=== PATIENT | male | born 1960 | race Caucasian/White ===

== ENCOUNTER 2016-04-30 11:47 | Inpatient (IN) | payer OTHER ==
[2016-04-30 14:11] LABS: COLOR ORANGE
[2016-04-30 14:14] LABS: BACTERIA TRACE /hpf (NONE SEEN); MUCUS TRACE /lpf (NONE-1+); RBC,URINE 15-25 /hpf (0-3)
[2016-04-30 14:15] LABS: HYALINE CASTS 15-25 /lpf (0-1)
[2016-04-30] MEDS ORDERED: NS 1,000 ML IV ONE (14:27)
[2016-04-30] MEDS ORDERED: ONDANSETRON 4 MG/2 ML VIAL IVP ONE (14:27)
[2016-04-30] MEDS ORDERED: HYDROmorphONE/DILAUDID 1 MG/ML SYR IVP ONE (14:27)
--- NOTE | 2016-04-30 14:30 | EDPHY ---
H & P Stated Complaint: lower qaud abd,bladder pain, burning with urination Time Seen by Provider: 04/30/16 14:17 HPI/ROS: CHIEF COMPLAINT: Dysuria, hematuria HISTORY OF PRESENT ILLNESS: The patient is a 55-year-old man who comes to the emergency department complaining dysuria, hematuria and suprapubic pain. His pain began 2 days ago. He thought that he had gas and was passing a lot of gas. This seemed to relieve his symptoms until night when he vomited several times. He had a mild fever on but has not since. He recently finished amoxicillin due to a dental infection and is currently on a Z-Hussein for the same. He denies other significant past medical history. He denies discharge. No promiscuous sexual contact. No testicle pain. No prostate pain or pain with stooling. No history of surgeries or procedures. REVIEW OF SYSTEMS: Constitutional: denies: chills, fever, recent illness, recent injury EENTM: denies: blurred vision, double vision, nose congestion Respiratory: denies: cough, shortness of breath Cardiac: denies: chest pain, irregular heart rate, lightheadedness, palpitations Gastrointestinal/Abdominal: denies: abdominal pain, diarrhea, nausea, vomiting, blood streaked stools Genitourinary: See HPI Musculoskeletal: denies: joint pain, muscle pain Skin: denies: lesions, rash, jaundice, bruising Neurological: denies: headache, numbness, paresthesia, tingling, dizziness, weakness Hematologic/Lymphatic: denies: blood clots, easy bleeding, easy bruising Immunologic/allergic: denies: HIV/AIDS, transplant EXAM: GENERAL: Well-appearing, well-nourished and in no acute distress. HEAD: Atraumatic, normocephalic. EYES: Pupils equal round and reactive to light, extraocular movements intact, sclera anicteric, conjunctiva are normal. ENT: TMs normal, nares patent, oropharynx clear without exudates. Moist mucous membranes. NECK: Normal range of motion, supple without lymphadenopathy or JVD. LUNGS: Breath sounds clear to auscultation bilaterally and equal. No wheezes rales or rhonchi. HEART: Regular rate and rhythm without murmurs, rubs or gallops. ABDOMEN: Focal suprapubic tenderness, no right lower or left lower quadrant tenderness. Soft, nontender, normoactive bowel sounds. No guarding, no rebound. No masses appreciated. No pain with prostate palpation.Normal testicles, no discharge with milking of the urethra. BACK: No CVA tenderness, no spinal tenderness, step-offs or deformities EXTREMITIES: Normal range of motion, no pitting or edema. No clubbing or cyanosis. NEUROLOGICAL: Cranial nerves II through XII grossly intact. Normal speech, normal gait. 5/5 strength, normal movement in all extremities, normal sensation PSYCH: Normal mood, normal affect. SKIN: Warm, dry, normal turgor, no visible rashes or lesions. Source: Patient Exam Limitations: No limitations - Personal History Current Tetanus/Diphtheria Vaccine: Unsure Current Tetanus Diphtheria and Acellular Pertussis (TDAP): Unsure - Medical/Surgical History Hx Asthma: No Hx Chronic Respiratory Disease: No Hx Diabetes: No Hx Cardiac Disease: No Hx Renal Disease: No Hx Cirrhosis: No Hx Alcoholism: No Hx HIV/AIDS: No Hx Splenectomy or Spleen Trauma: No Other PMH: depression, osteoporosis - Family History Significant Family History: No pertinent family hx - Social History Smoking Status: Never smoked Alcohol Use: None Drug Use: None Constitutional: Initial Vital Signs Temperature (C) 37.0 C 04/30/16 12:14 Heart Rate 117 H 04/30/16 12:14 Respiratory Rate 16 04/30/16 12:14 Blood Pressure 126/95 H 04/30/16 12:14 O2 Sat (%) 96 04/30/16 12:14 O2 Delivery Mode Room Air Allergies/Adverse Reactions: No Known Allergies Allergy (Unverified 04/30/16 12:17) Home Medications: Medication Instructions Recorded AZITHROMYCIN [Z-PACK] 250 mg PO DAILY 04/30/16 Alendronate Sodium [Fosamax 70 MG 70 mg PO FR@0700 04/30/16 (*)] Atorvastatin Calcium [Lipitor 40 40 mg PO HS 04/30/16 mg (*)] Cholecalciferol Vit D3 [Vitamin D3 2,000 units PO DAILY 04/30/16 2000 units tab (OTC)] FLUoxetine [Prozac 20 MG (*)] 40 mg PO DAILY 04/30/16 buPROPion SR [Wellbutrin 150mg SR 150 mg PO DAILY 04/30/16 (*)] Medical Decision Making - Diagnostics Imaging: Results: CT scan of the abdomen was obtained. The results of the study are diverticulitis with micro perforation and a large gas collection in the mesenteric, no pneumoperitoneum. The study was read by Dr. Moris Walden . I viewed the images myself on the PACS system. ED Course/Re-evaluation: 4:05 p.m. the patient is asking for more pain medication. We discussed the CT results. I spoke with Dr. Shaan Adkins will come to evaluate the patient. 4:30 p.m. the patient has been evaluated by Dr. Shaan Adkins who will admit. Differential Diagnosis: Partial list of the Differential diagnosis considered include but were not limited to; urinary tract infection, kidney stone, diverticulitis and although unlikely based on the history and physical exam, I also considered appendicitis , abscess, aneurysm, dissection. - Data Points Laboratory Results: Laboratory Results 04/30/16 15:00 04/30/16 15:00 04/30/16 04/30/16 04/30/16 16:30 15:00 13:30 WBC 5.37 10^3/uL (3.80-9.50) RBC 4.22 L 10^6/uL (4.40-6.38) Hgb 14.6 g/dL (13.7-17.5) Hct 41.3 % (40.0-51.0) MCV 97.9 fL (81.5-99.8) MCH 34.6 H pg (27.9-34.1) MCHC 35.4 g/dL (32.4-36.7) RDW 12.3 % (11.5-15.2) Plt Count 100 L 10^3/uL (150-400) MPV 10.0 fL (8.7-11.7) Neut % (Auto) Not Reported Lymph % (Auto) Not Reported [place] % (Auto) Not Reported Eos % (Auto) Not Reported Baso % (Auto) Not Reported Nucleat RBC Rel Count 0.0 % (0.0-0.2) Absolute Neuts (auto) Not Reported Absolute Lymphs (auto) Not Reported Absolute Monos (auto) Not Reported Absolute Eos (auto) Not Reported Absolute Basos (auto) Not Reported Absolute Nucleated RBC 0.00 10^3/uL (0-0.01) Immature Gran % Not Reported Seg Neutrophils % 51 % Band Neutrophils % 42 % Lymphocytes % 3 % Monocytes % 3 % Metamyelocytes % 1 % Immature Gran # Not Reported Absolute Seg Neuts 2.74 10^/uL (1.70-6.50) Absolute Band Neuts 2.26 H 10^3/uL (0.00-0.70) Absolute Lymphocytes 0.16 L 10^3/uL (1.00-3.00) Absolute Monocytes 0.16 L 10^3/uL (0.30-0.80) Absolute Metamyelocyte 0.05 H 10^3/mL (0.00-0.00) RBC/WBC/PLT Morphology NORMAL (NORMAL) Platelet Estimate DECREASED L (ADEQ) Giant Platelets PRESENT H Sodium 138 mEq/L (134-144) Potassium 3.2 L mEq/L (3.5-5.2) Chloride 104 mEq/L (97-110) Carbon Dioxide 20 L mEq/l (22-31) Anion Gap 14 mEq/L (8-16) BUN 17 mg/dL (7-23) Creatinine 1.2 mg/dL (0.7-1.3) Estimated GFR > 60 Glucose 103 H mg/dL (70-100) Calcium 8.6 mg/dL (8.5-10.4) Total Bilirubin 2.8 H mg/dL (0.1-1.4) Conjugated Bilirubin 2.1 H mg/dL (0.0-0.5) Unconjugated Bilirubin 0.7 mg/dL (0.0-1.1) AST 93 H IU/L (17-59) ALT 100 H IU/L (21-72) Alkaline Phosphatase 129 H IU/L (38-126) Total Protein 6.5 g/dL (6.3-8.2) Albumin 3.4 L g/dL (3.5-5.0) Lipase 26.0 IU/L (23-300) Urine Color KIMANI ORANGE Urine Appearance CLEAR HAZY Urine pH 5.0 TNP (5.0-7.5) Ur Specific [place] > 1.035 H TNP (1.002-1.030) Urine Protein 1+ H TNP (NEGATIVE) Urine Ketones TRACE H TNP (NEGATIVE) Urine Blood 1+ H TNP (NEGATIVE) Urine Nitrate POSITIVE H TNP (NEGATIVE) Urine Bilirubin NEGATIVE TNP (NEGATIVE) Urine Urobilinogen 4.0 H EU TNP (0.2-1.0) Ur Leukocyte Esterase NEGATIVE TNP (NEGATIVE) Urine RBC 1-3 /hpf 15-25 H /hpf (0-3) (0-3) Urine WBC 1-3 /hpf 5-10 H /hpf (0-3) (0-3) Ur Epithelial Cells TRACE /lpf TRACE /lpf (NONE-1+) (NONE-1+) Urine Bacteria 3+ H /hpf TRACE H /hpf (NONE SEEN) (NONE SEEN) Hyaline Casts 5-15 /lpf 15-25 H /lpf (0-1) (0-1) Urine Mucus TRACE /lpf TRACE /lpf (NONE-1+) (NONE-1+) Ur Culture Indicated? INDICATED H (NI) Urine Glucose NEGATIVE TNP (NEGATIVE) Medications Given: Discontinued Medications Hydromorphone HCl (Dilaudid) 0.5 mg IVP EDNOW ONE Stop: 04/30/16 14:28 Last Admin: 04/30/16 15:04 Dose: 0.5 mg Sodium Chloride (Ns) 1,000 mls @ 0 mls/hr IV ONCE ONE PRN Reason: Wide Open Stop: 04/30/16 14:28 Last Admin: 04/30/16 15:04 Dose: 1,000 mls Levofloxacin/Dextrose (Levaquin 750 Mg (Premix)) 150 mls @ 100 mls/hr IV EDNOW ONE PRN Reason: Protocol Stop: 04/30/16 17:30 Last Admin: 04/30/16 16:28 Dose: 150 mls Metronidazole/Sodium Chloride (Flagyl 500 Mg (Premix)) 100 mls @ 100 mls/hr IV EDNOW ONE PRN Reason: Protocol Stop: 04/30/16 17:00 Last Admin: 04/30/16 17:57 Dose: 100 mls Ondansetron HCl (Zofran) 4 mg IVP EDNOW ONE Stop: 04/30/16 14:28 Last Admin: 04/30/16 15:04 Dose: 4 mg Departure - Departure Disposition: [facility] Acute Clinical Impression: Diverticulitis Qualifiers: Diverticulitis site: large intestine Diverticulitis bleeding: without bleeding Diverticulitis complication: with perforation Qualifier Code: (K57.20) Diverticulitis of large intestine with perforation and abscess without bleeding Condition: Fair
[2016-04-30 15:09] LABS: ADD MORPH? NO; ADD SCAN? YES; ATYPICAL LYMPHOCYTE FLAG 0 (0-99); FRAGMENT RBC FLAG 0 (0-99); HEMATOCRIT 41.3 % (40.0-51.0); HEMOGLOBIN 14.6 g/dL (13.7-17.5); LIPEMIA HEMOLYSIS FLAG 90 (0-99); MEAN CELL HEMOGLOBIN 34.6 pg (27.9-34.1); MEAN CELL HEMOGLOBIN CONCENTR. 35.4 g/dL (32.4-36.7); MEAN CELL VOLUME 97.9 fL (81.5-99.8); PLATELET CLUMPS FLAG 0 (0-99); PLATELET COUNT 100 10^3/uL (150-400); RED BLOOD CELL COUNT 4.22 10^6/uL (4.40-6.38); RED CELL DISTRIBUTION WIDTH 12.3 % (11.5-15.2)
[2016-04-30] MEDS ORDERED: IOPAMIDOL (ISOVUE-300) 100 ML BTL IV ONE (15:14)
[2016-04-30 15:16] LABS: LEFT SHIFT FLG 300 (0-99)
[2016-04-30 15:26] LABS: ALANINE AMINOTRANSFERASE 100 IU/L (21-72); ALBUMIN 3.4 g/dL (3.5-5.0); ALKALINE PHOSPHATASE 129 IU/L (38-126); ANION GAP 14 mEq/L (8-16); ASPARTATE AMINOTRANSFERASE 93 IU/L (17-59); BILIRUBIN,TOTAL 2.8 mg/dL (0.1-1.4); BILIRUBIN-CONJUGATED 2.1 mg/dL (0.0-0.5); BILIRUBIN-UNCONJUGATED 0.7 mg/dL (0.0-1.1); CALCIUM 8.6 mg/dL (8.5-10.4); CARBON DIOXIDE 20 mEq/l (22-31); CHLORIDE 104 mEq/L (97-110); CREATININE 1.2 mg/dL (0.7-1.3); GLOMERULAR FILTRATION RATE > 60; GLUCOSE 103 mg/dL (70-100); POTASSIUM 3.2 mEq/L (3.5-5.2); SODIUM 138 mEq/L (134-144); TOTAL PROTEIN 6.5 g/dL (6.3-8.2)
[2016-04-30 15:52] LABS: ADD DIFF? YES; SCAN POSITIVE
[2016-04-30 16:02] LABS: GIANT PLATELETS PRESENT
[2016-04-30 16:03] LABS: PLATELET ESTIMATE DECREASED (ADEQ)
--- NOTE | 2016-04-30 16:21 | CT ---
CT Scan of the Abdomen and Pelvis (With Contrast) Indication: Abdominal pain Technique: No oral or rectal contrast. 90 mL of Isovue 300 were given intravenously by machine power injection. Multidetector helical CT imaging was performed from the diaphragm to the symphysis pubis . Dose reduction techniques were utilized. Comparison: None Findings: A 10 cm segment of the sigmoid: Has concentric wall thickening, pericolonic edema, and an a ggregate of extraluminal gas in the central mesenteric fat measuring 5 x 5 x 6 cm. Numerous diverticu la are present along the inflamed segment of sigmoid colon. No free fluid, abscess, Justina pneumoperit oneum, or obstruction. The appendix is normal. Minimal portal venous gas is present in the dome of the left lobe of the liver on images 24 through 2 8 of series 4. The liver, spleen, pancreas, gallbladder, adrenal glands, and kidneys are normal. No h ydronephrosis or ureteral calculi. The urinary bladder is normal. Prostate gland is normal size with benign central dystrophic calcification. Portal vein is patent. No biliary dilation. Impression: 1. Perforated sigmoid diverticulitis with extraluminal gas in the central mesenteric fat and trace po rtal venous gas in the liver. 2. No free fluid, abscess, or justina pneumoperitoneum. Comment: Results were called to Dr. Sathya Potter at 16:00 hours April 30, 2016.
[2016-04-30 16:39] LABS: COLOR AMBER; LEUKOCYTE ESTERASE,URINE NEGATIVE (NEGATIVE); NITRITE,URINE POSITIVE (NEGATIVE)
[2016-04-30 16:42] LABS: BACTERIA 3+ /hpf (NONE SEEN); MUCUS TRACE /lpf (NONE-1+)
[2016-04-30] MEDS ORDERED: ONDANSETRON DISINTEGRATING 4 MG TAB PO PRN (16:54)
[2016-04-30] MEDS ORDERED: ACETAMINOPHEN 325 MG TAB PO PRN (16:54)
[2016-04-30] MEDS ORDERED: PROMETHAZINE HCL 25 MG/ML INJ IVP PRN (16:54)
--- NOTE | 2016-04-30 17:34 | GCON ---
[f rep st] CONSULTATION DATE OF CONSULTATION: 04/30/2016 CHIEF COMPLAINT: Abdominal pain with bloating. HISTORY OF PRESENT ILLNESS: This is an otherwise healthy, 55-year-old male, who presents to the [facility] department today with persistent low abdominal pain and bloating for the past 2 days. He state s that prior to 48 hours ago, he was in his usual state of health. However, over the last 48 hours, he has had progressive lower abdominal pain that he describes as a sharp, sometimes burning sensation without radiation just superior to his symphysis pubis that it is worse with palpation. He denies h aving any other symptoms, including nausea, vomiting, fevers or chills, and came in today because of the persistent pain. He states that he recently changed his diet to a low residue noodle diet, and that he has lost 12 chance nds over the last few months, and that he is in overall good health. He states that he continues to tolerate a regular diet without any issues, and that he continues to have bowel function daily, passe s flatus as well, without any issues. His last p.o. was this morning and was well-tolerated. He rec ently began a Z-Hussein prescribed by his dentist for a tooth infection, which he started last , and has subsequently taken 2 doses per his report. PAST MEDICAL HISTORY: Anxiety, depression, hyperlipidemia, tooth abscess. PAST SURGICAL HISTORY: None. CURRENT MEDICATIONS: Prozac, Wellbutrin, Lipitor, and azithromycin. ALLERGIES: No known drug or food allergies. REVIEW OF SYSTEMS: A full 10-point review was performed, and unless explicitly stated above, is othe rwise negative. PHYSICAL EXAM: VITAL SIGNS: Heart rate 117, blood pressure 126/95, temperature 37 even, respiration s 16, and he is 96% on room air. GENERAL: He is alert and oriented. Does appear to be somewhat anx ious. CV: He is tachycardic on presentation; however, this has resolved with fluid administration. He has no murmurs appreciated. LUNGS: Clear to auscultation. ABDOMEN: Soft, distended and tende r to palpation just above the symphysis pubis with rebound tenderness. No guarding appreciated. The abdomen is otherwise soft and nontender. EXTREMITIES: Warm and well-perfused. LABS: White blood cell count normal at 5, although he does have a left shift. H and H stable at 14 and 41 respectively. Chemistry is unremarkable, although he does have an elevated bilirubin at 2.8 i n addition to an elevated AST and ALT. CT scan of the abdomen and pelvis with IV contrast was performed, which does show perforated sigmoid diverticulitis with extraluminal gas in the central mesenteric fat without any free fluid, abscesses, or justina pneumoperitoneum. ASSESSMENT AND PLAN: A 55-year-old male with complicated diverticulitis. I had a long discussion wi th the patient today regarding his diagnosis. I told him that currently his exam is reassuring, in a ddition to the fact that he has a normal white blood cell count and is afebrile. We will proceed wit h conservative management consisting of bowel rest, and IV antibiotics. It appears as though he had a small diverticula which perforated and released only air, and there is no free fluid within the pat ient's abdomen, at this point in time, which would be drainable percutaneously. I told the patient t hat we would admit him, monitor his exam, and plan accordingly. I did tell him that there is still a chance that he may need an operation, which would likely result in removal of the segmental portion of his sigmoid colon with or without colostomy. He understands this, and understands his anticipated hospital course. /[id number]/MODL
[2016-04-30] MEDS: D5W 1/2 NS W/ 20 KCl/L 1,000 ML IV SCH (17:58)
[2016-04-30] MEDS: HYDROmorphONE/DILAUDID 1 MG/ML SYR IVP PRN ×2 (18:13→22:38)
[2016-04-30] MEDS: FLUoxetine 20 MG CAP PO SCH (21:26)
[2016-04-30] MEDS: buPROPion SR 150 MG TAB PO SCH (21:26)
[2016-04-30] MEDS: ATORVASTATIN CALCIUM 40 MG TAB PO SCH (21:27)
[2016-04-30] MEDS: LORazepam 2 MG/ML INJ IVP PRN (22:39)
[2016-05-01 05:53] LABS: CHLORIDE 107 mEq/L (97-110)
[2016-05-01 05:55] LABS: ANION GAP 7 mEq/L (8-16); CALCIUM 7.7 mg/dL (8.5-10.4); CARBON DIOXIDE 23 mEq/l (22-31); GLOMERULAR FILTRATION RATE > 60; GLUCOSE 124 mg/dL (70-100); POTASSIUM 3.9 mEq/L (3.5-5.2); SODIUM 137 mEq/L (134-144)
[2016-05-01 05:58] LABS: % IMMATURE GRANULYOCYTES 0.4 % (0.0-1.1); ABSOLUTE IMMATURE GRANULOCYTES 0.02 10^3/uL (0.00-0.10); ADD DIFF? NO; ADD MORPH? NO; ADD SCAN? YES; ATYPICAL LYMPHOCYTE FLAG 0 (0-99); FRAGMENT RBC FLAG 0 (0-99); HEMATOCRIT 37.5 % (40.0-51.0); HEMOGLOBIN 12.7 g/dL (13.7-17.5); LIPEMIA HEMOLYSIS FLAG 90 (0-99); MEAN CELL HEMOGLOBIN 33.6 pg (27.9-34.1); MEAN CELL HEMOGLOBIN CONCENTR. 33.9 g/dL (32.4-36.7); MEAN CELL VOLUME 99.2 fL (81.5-99.8); MEAN PLATELET VOLUME 10.8 fL (8.7-11.7); PLATELET CLUMPS FLAG 10 (0-99); PLATELET COUNT 105 10^3/uL (150-400); RED BLOOD CELL COUNT 3.78 10^6/uL (4.40-6.38); RED CELL DISTRIBUTION WIDTH 12.6 % (11.5-15.2)
[2016-05-01 06:04] LABS: LEFT SHIFT FLG 300 (0-99)
[2016-05-01] MEDS: HYDROmorphONE/DILAUDID 1 MG/ML SYR IVP PRN ×3 (06:05→18:31)
[2016-05-01 07:32] LABS: SCAN NEGATIVE
[2016-05-01] MEDS: FLUoxetine 20 MG CAP PO SCH (09:16)
[2016-05-01] MEDS: buPROPion SR 150 MG TAB PO SCH (09:50)
[2016-05-01] MEDS: D5W 1/2 NS W/ 20 KCl/L 1,000 ML IV SCH ×2 (11:38→20:27)
[2016-05-01] MEDS: ONDANSETRON 4 MG/2 ML VIAL IVP PRN ×2 (13:33→18:31)
--- NOTE | 2016-05-01 14:10 | SOAPPROG ---
SOAP Progress Note Assessment/Plan: Assessment/Plan - 55yo M c complicated diverticulitis - WBC remains WNL, afebrile. - Abdomen mva still operator, although improved. - Cont abx, will see how he does with another 24hrs of IV antibiotics but if pain persists I discussed the likely need for OR. Cont NPO in the meantime 05/01/16 14:08 Subjective: wants to eat Objective: Vital Signs Temp Pulse Resp BP Pulse Ox 36.8 C 91 18 101/62 94 05/01/16 11:53 05/01/16 11:53 05/01/16 11:53 05/01/16 11:53 05/01/16 11:53 Laboratory Results 05/01/16 04:28 05/01/16 04:28 04/30/16 05/01/16 05/02/16 05:59 05:59 05:59 Intake Total 1100 Output Total 750 500 Balance 350 -500 ICD10 Worksheet Patient Problems: Problems Problem Status Diagnosed Diverticulitis Acute
[2016-05-01] MEDS: ATORVASTATIN CALCIUM 40 MG TAB PO SCH (20:27)
[2016-05-01] MEDS: LORazepam 2 MG/ML INJ IVP PRN (20:27)
[2016-05-02] MEDS: HYDROmorphONE/DILAUDID 1 MG/ML SYR IVP PRN (00:47)
[2016-05-02] MEDS: D5W 1/2 NS W/ 20 KCl/L 1,000 ML IV SCH (05:54)
[2016-05-02 07:29] VITALS: TEMP 98.1
[2016-05-02] MEDS: buPROPion SR 150 MG TAB PO SCH (08:41)
[2016-05-02] MEDS: FLUoxetine 20 MG CAP PO SCH (08:41)
[2016-05-02 15:10] VITALS: BP 135/89; PULSE 92; RESP 18; O2SAT 96
--- NOTE | 2016-05-12 17:06 | GDS ---
[f rep st] DISCHARGE SUMMARY DISCHARGE DIAGNOSIS: Complicated diverticulitis. HOSPITAL COURSE: A 55-year-old male admitted from the emergency department with abdominal pain and a CT scan showing a contained perforation of the sigmoid colon secondary to diverticular inflammation. The patient was initially managed with bowel rest and IV antibiotics. His pain continued to resolv e and on day of discharge had almost completely resolved. His diet was transitioned to a regular t, which was well tolerated on the day of discharge, and his pain had almost essentially resolved. Steve gregg was subsequently discharged home with an additional 7-day regimen of oral antibiotics in stable con dition. DISCHARGE MEDICATIONS: Augmentin for a scheduled additional 5-day course. FOLLOWUP: The [facility] and will follow up with his PCP. He does need a colonoscopy i n 6 weeks after discharge as he has never had one, as he needs to rule out any underlying pathology a t this site. If insurance allows, he can follow up with me to be followed routinely, where we will f kelsy his exam. If he should have recurrent disease in the future, I have recommended elective sigmo idectomy to remove the offending organ. We will plan to see him on an elective outpatient basis. /[id number]/MODL
== END 2016-05-02 17:58 | disposition home or self-care (01) | DRG 392 ==
LOC: F3E 17:45 → OBSVTOIN 05-01 14:10
PROVIDERS: ADMIT Surgery; ATTEND Surgery
DX: K57.20 Diverticulitis of large intestine with perforation and abscess without bleeding (principal); E78.5 Hyperlipidemia, unspecified; F41.8 Other specified anxiety disorders
CPT/HCPCS: 96365; G0378; J1170; J1956; J2405; Q9967

== ENCOUNTER 2016-06-19 20:28 | Observation (INO) | payer OTHER ==
[2016-06-19] MEDS ORDERED: ONDANSETRON 4 MG/2 ML VIAL ONE (21:16)
[2016-06-19] MEDS ORDERED: HYDROmorphONE/DILAUDID 1 MG/ML SYR IVP ONE (21:16)
[2016-06-19] MEDS ORDERED: NS 1,000 ML IV ONE (21:16)
[2016-06-19] MEDS ORDERED: ONDANSETRON 4 MG/2 ML VIAL IVP ONE (21:27)
[2016-06-19 21:43] LABS: % IMMATURE GRANULYOCYTES 0.4 % (0.0-1.1); ABSOLUTE IMMATURE GRANULOCYTES 0.04 10^3/uL (0.00-0.10); ADD DIFF? NO; ADD MORPH? NO; ADD SCAN? NO; ATYPICAL LYMPHOCYTE FLAG 0 (0-99); FRAGMENT RBC FLAG 0 (0-99); HEMATOCRIT 39.7 % (40.0-51.0); HEMOGLOBIN 12.8 g/dL (13.7-17.5); LEFT SHIFT FLG 0 (0-99); LIPEMIA HEMOLYSIS FLAG 80 (0-99); MEAN CELL HEMOGLOBIN 30.3 pg (27.9-34.1); MEAN CELL HEMOGLOBIN CONCENTR. 32.2 g/dL (32.4-36.7); MEAN CELL VOLUME 93.9 fL (81.5-99.8); MEAN PLATELET VOLUME 9.2 fL (8.7-11.7); PLATELET CLUMPS FLAG 30 (0-99); PLATELET COUNT 429 10^3/uL (150-400); RED BLOOD CELL COUNT 4.23 10^6/uL (4.40-6.38); RED CELL DISTRIBUTION WIDTH 14.7 % (11.5-15.2)
[2016-06-19 21:50] LABS: ALANINE AMINOTRANSFERASE 27 IU/L (21-72); ALBUMIN 3.8 g/dL (3.5-5.0); ALKALINE PHOSPHATASE 168 IU/L (38-126); ANION GAP 16 mEq/L (8-16); ASPARTATE AMINOTRANSFERASE 19 IU/L (17-59); BILIRUBIN,TOTAL 0.9 mg/dL (0.1-1.4); BILIRUBIN-CONJUGATED 0.5 mg/dL (0.0-0.5); BILIRUBIN-UNCONJUGATED 0.4 mg/dL (0.0-1.1); CALCIUM 9.9 mg/dL (8.5-10.4); CARBON DIOXIDE 17 mEq/l (22-31); CHLORIDE 106 mEq/L (97-110); CREATININE 0.9 mg/dL (0.7-1.3); GLOMERULAR FILTRATION RATE > 60; GLUCOSE 177 mg/dL (70-100); POTASSIUM 4.6 mEq/L (3.5-5.2); SODIUM 139 mEq/L (134-144); TOTAL PROTEIN 7.4 g/dL (6.3-8.2)
[2016-06-19] MEDS ORDERED: IOPAMIDOL (ISOVUE-300) 100 ML BTL IV ONE (22:09)
[2016-06-19 23:25] LABS: COLOR YELLOW; LEUKOCYTE ESTERASE,URINE NEGATIVE (NEGATIVE); NITRITE,URINE NEGATIVE (NEGATIVE)
--- NOTE | 2016-06-19 23:28 | EDPHY ---
H & P Stated Complaint: Abd, vomiting today HPI/ROS: Chief complaint: Abdominal pain History of present illness: This is a 55-year-old male who presents to the emergency department for evaluation of abdominal pain. Patient reports the onset of symptoms this morning. Symptoms have been worsening. He has had associated nausea and vomiting. He has had loose stool. Denies precipitating factors. He denies alleviating factors. He denies other associated signs or symptoms including no fevers, no urinary symptoms. Review of systems: A 10 point review of systems was obtained and other than described above was negative - Personal History Current Tetanus/Diphtheria Vaccine: No Current Tetanus Diphtheria and Acellular Pertussis (TDAP): No - Medical/Surgical History Hx Asthma: No Hx Chronic Respiratory Disease: No Hx Diabetes: No Hx Cardiac Disease: No Hx Renal Disease: No Hx Cirrhosis: No Hx Alcoholism: No Hx HIV/AIDS: No Hx Splenectomy or Spleen Trauma: No Other PMH: depression, osteoporosis, diverticulitis - Social History Smoking Status: Never smoked - Physical Exam Exam: General Appearance: Alert, nontoxic. Eyes: Pupils equal and round no pallor or injection. ENT, Mouth: Mucous membranes moist. Respiratory: There are no retractions, lungs are clear to auscultation. Cardiovascular: Regular rate and rhythm. Gastrointestinal: Bowel sounds are diminished. Abdomen is diffusely tender to palpation. Neurological: Alert and oriented. Strength and sensation intact and symmetrical. Skin: Warm and dry, no rashes. Musculoskeletal: Neck is supple nontender. Extremities are symmetrical, full range of motion. Psychiatric: Patient is oriented X 3, there is no agitation. Constitutional: Initial Vital Signs Temperature (C) 36.6 C 06/19/16 20:41 Heart Rate 71 06/19/16 20:41 Respiratory Rate 16 06/19/16 20:41 Blood Pressure 162/96 H 06/19/16 20:41 O2 Sat (%) 98 06/19/16 20:41 O2 Delivery Mode Nasal Cannula O2 (L/minute) 2 Allergies/Adverse Reactions: No Known Allergies Allergy (Unverified 04/30/16 12:17) Home Medications: Medication Instructions Recorded AZITHROMYCIN [Z-PACK] 250 mg PO DAILY 04/30/16 Alendronate Sodium [Fosamax 70 MG 70 mg PO FR@0700 04/30/16 (*)] Atorvastatin Calcium [Lipitor 40 40 mg PO HS 04/30/16 mg (*)] Cholecalciferol Vit D3 [Vitamin D3 2,000 units PO DAILY 04/30/16 2000 units tab (OTC)] FLUoxetine [Prozac 20 MG (*)] 40 mg PO DAILY 04/30/16 buPROPion SR [Wellbutrin 150mg SR 150 mg PO DAILY 04/30/16 (*)] Amoxicillin/Potassium Clav 1 each PO BID 5 Days 05/02/16 [Amox-Clav 875-125 mg Tablet] oxyCODONE/APAP 5325 [Percocet 1 - 2 tab PO Q4H PRN #20 tab 05/02/16 5/325 (*)] Medical Decision Making - Diagnostics Imaging: CT scan of the abdomen and pelvis shows a mechanical small-bowel obstruction, see report for complete details ED Course/Re-evaluation: Patient seen under the supervision of my secondary supervising physician Dr. Lake Wall. Patient presents to the emergency department for abdominal pain. Ultimately he appears to have a mechanical bowel obstruction. Patient will be admitted to Dr. Shankar Torres of General surgery for further evaluation and care. The plan has been discussed with the patient who voiced understanding and agreement with it. Differential Diagnosis: Included but not limited to gastritis, gastroenteritis, biliary tract disease, pancreatitis, colitis, appendicitis, bowel obstruction, urinary tract disease - Data Points Laboratory Results: Laboratory Results 06/19/16 21:20 06/19/16 21:20 06/19/16 06/19/16 06/19/16 22:14 21:20 21:20 WBC 9.90 10^3/uL H 10^3/uL (3.80-9.50) RBC 4.23 10^6/uL L 10^6/uL (4.40-6.38) Hgb 12.8 g/dL L g/dL (13.7-17.5) Hct 39.7 % L % (40.0-51.0) MCV 93.9 fL fL (81.5-99.8) MCH 30.3 pg pg (27.9-34.1) MCHC 32.2 g/dL L g/dL (32.4-36.7) RDW 14.7 % % (11.5-15.2) Plt Count 429 10^3/uL H 10^3/uL (150-400) MPV 9.2 fL fL (8.7-11.7) Neut % (Auto) 79.8 % H % (39.3-74.2) Lymph % (Auto) 14.7 % L % (15.0-45.0) [place] % (Auto) 4.5 % % (4.5-13.0) Eos % (Auto) 0.2 % L % (0.6-7.6) Baso % (Auto) 0.4 % % (0.3-1.7) Nucleat RBC Rel Count 0.0 % % (0.0-0.2) Absolute Neuts (auto) 7.89 10^3/uL H 10^3/uL (1.70-6.50) Absolute Lymphs (auto) 1.46 10^3/uL 10^3/uL (1.00-3.00) Absolute Monos (auto) 0.45 10^3/uL 10^3/uL (0.30-0.80) Absolute Eos (auto) 0.02 10^3/uL L 10^3/uL (0.03-0.40) Absolute Basos (auto) 0.04 10^3/uL 10^3/uL (0.02-0.10) Absolute Nucleated RBC 0.00 10^3/uL 10^3/uL (0-0.01) Immature Gran % 0.4 % % (0.0-1.1) Immature Gran # 0.04 10^3/uL 10^3/uL (0.00-0.10) Sodium 139 mEq/L mEq/L (134-144) Potassium 4.6 mEq/L mEq/L (3.5-5.2) Chloride 106 mEq/L mEq/L (97-110) Carbon Dioxide 17 mEq/l L mEq/l (22-31) Anion Gap 16 mEq/L mEq/L (8-16) BUN 12 mg/dL mg/dL (7-23) Creatinine 0.9 mg/dL mg/dL (0.7-1.3) Estimated GFR > 60 Glucose 177 mg/dL H mg/dL (70-100) Calcium 9.9 mg/dL mg/dL (8.5-10.4) Total Bilirubin 0.9 mg/dL mg/dL (0.1-1.4) Conjugated Bilirubin 0.5 mg/dL mg/dL (0.0-0.5) Unconjugated Bilirubin 0.4 mg/dL mg/dL (0.0-1.1) AST 19 IU/L IU/L (17-59) ALT 27 IU/L IU/L (21-72) Alkaline Phosphatase 168 IU/L H IU/L (38-126) Total Protein 7.4 g/dL g/dL (6.3-8.2) Albumin 3.8 g/dL g/dL (3.5-5.0) Lipase 41.0 IU/L IU/L (23-300) Urine Color Pending Urine Appearance Pending Urine pH Pending Ur Specific [place] Pending Urine Protein Pending Urine Ketones Pending Urine Blood Pending Urine Nitrate Pending Urine Bilirubin Pending Urine Urobilinogen Pending Ur Leukocyte Esterase Pending Ur Culture Indicated? Pending Urine Glucose Pending Medications Given: Discontinued Medications Hydromorphone HCl (Dilaudid) 1 mg IVP EDNOW ONE Stop: 06/19/16 21:17 Last Admin: 06/19/16 21:30 Dose: 1 mg Sodium Chloride (Ns) 1,000 mls @ 0 mls/hr IV ONCE ONE PRN Reason: Wide Open Stop: 06/19/16 21:17 Last Admin: 06/19/16 21:28 Dose: 1,000 mls Ondansetron HCl (Zofran) 4 mg IVP EDNOW ONE Stop: 06/19/16 21:28 Last Admin: 06/19/16 21:28 Dose: 4 mg Departure - Departure Disposition: [facility] Inpatient Acute Clinical Impression: Small bowel obstruction Condition: Fair
[2016-06-19] MEDS ORDERED: KETOROLAC 30 MG/1 ML SDV IVP ONE (23:36)
[2016-06-19] MEDS ORDERED: ONDANSETRON 4 MG/2 ML VIAL IVP PRN (23:36)
[2016-06-19 23:43] LABS: HYALINE CASTS 15-25 /lpf (0-1); MUCUS 3+ /lpf (NONE-1+)
[2016-06-19 23:44] LABS: RBC,URINE NONE SEEN /hpf (0-3)
--- NOTE | 2016-06-20 00:04 | GHP ---
[f rep st] PREOP HISTORY AND PHYSICAL DATE OF ADMISSION: 06/19/2016 REASON FOR EVALUATION: Small bowel obstruction. HISTORY OF PRESENT ILLNESS: A 55-year-old white male with no antecedent surgical history, presents to the hospital today with a one-day history of severe abdominal pain, nausea, and dry heaves after eating a tater tot and green chili meal last evening. No prior history of obstructive symptoms. Hi s last bowel movement was earlier this morning. He has been having small flatus throughout the day. Significant, the patient was admitted to the hospital approximately 2 months ago with a first time severe case of diverticulitis with perforation with a moderate amount of free intraabdominal air. He was managed medically and describes a very slow recovery taking up to approximately 1 week ago, t o which he was eating normally and back to regular activities. He reports a lifelong history of nati quent bowel movements after he eats. He has a bowel movement shortly thereafter. This has not been changed in multiple years. He has a significant history of alcohol abuse. He has been sober since his hospitalization 2 months ago. He does utilize medical marijuana periodically. At present time , the patient reports that his pain is markedly improved. He is currently not nauseated. He is cur rently hungry. PAST SURGERY HISTORY: Osteoporosis. PAST SURGICAL HISTORY: None. MEDICATIONS: Wellbutrin, Prozac, Fosamax, vitamin D, probiotics. ALLERGIES: No known drug allergies. SOCIAL HISTORY: Notable history for alcohol abuse. 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 REVIEW OF SYSTEMS: Notable for above GI complaints and alcohol abuse. Otherwise negative ten point review of systems. PHYSICAL EXAMINATION: VITAL SIGNS: Temperature 36.6, blood pressure 130/90, pulse 89, respirations 14. GENERAL: Patient is alert, appropriate, comfortable at present time. HEENT: Anicteric. NEC K: No cervical or supraclavicular lymphadenopathy. HEART: Regular without murmurs. LUNGS: Clear bilaterally. ABDOMEN: Soft with mild right mid abdominal query phlegmon without tenderness. No m asses. No hernias. EXTREMITIES: Unremarkable. NEUROLOGIC: Unremarkable. 2+ pulses bilaterally. LABORATORY DATA: White count 9.9, hemoglobin 13, platelets of 430. Electrolytes within reference r luma. Liver enzymes, alkaline phosphatase 168, AST 19, ALT 27, total bilirubin 0.9, glucose 188. C T images directly reviewed on [place] system and with radiologist consistent with small bowel obstructio n with dilated proximal bowel. Small bowel fecalization with a transition zone within the right low er quadrant with mesenteric fat stranding present. IMPRESSION: 1. Partial small bowel obstruction. Patient with no antecedent surgical history, however, with a s ignificant history for perforated diverticulitis with probable phlegmon formation, suspect obstructi on secondary to his prior colonic perforation. He is clinically markedly improved at this time. Th e patient will be admitted for fluid resuscitation and overnight observation. If continued resoluti on of symptoms, will plan to advance diet with discharge planning to take place tomorrow. If the pa tient develops worsening pain, nausea, he is aware that a nasogastric tube may be required and poten tial need for surgical intervention if no resolution. The patient is scheduled to undergo a colonos copy at the [facility] in the near future. 2. Alcohol abuse. Applauded patient cessation efforts. Care plan was discussed with the patient and Mother at bedside in detail. All their questions were entertained. /[id number]/MODL
[2016-06-20] MEDS: D5W LR 1,000 ML IV SCH ×2 (00:15→07:31)
[2016-06-20] MEDS: KETOROLAC 15 MG/1 ML SDV IVP SCH ×2 (05:43→12:22)
--- NOTE | 2016-06-20 07:52 | SOAPPROG ---
SOAP Progress Note Assessment/Plan: Assessment:no complaints. no pain. no nausea or vomiting. mult BM. afebrile. abd soft, resolved distention, firm changes RLQ improved. clinically improved. KUB pending. assuming improved, adv diet and plan for disch to home this am. recurrence risks reviewed. has outpt plans for cscope at [facility]. Plan: 06/20/16 07:47 06/20/16 07:52 Objective: Vital Signs Temp Pulse Resp BP Pulse Ox 36.4 C 66 16 99/66 L 94 06/20/16 03:58 06/20/16 03:58 06/20/16 03:58 06/20/16 03:58 06/20/16 03:58 06/19/16 06/20/16 06/21/16 05:59 05:59 05:59 Intake Total 1000 Balance 1000 ICD10 Worksheet Patient Problems: Problems Problem Status Onset Small bowel obstruction Acute Diverticulitis Acute
[2016-06-20 08:10] VITALS: O2SAT 96
[2016-06-20 10:55] VITALS: BP 123/75; PULSE 71; RESP 18; TEMP 98.1
[2016-06-21] MEDS ORDERED: FLUoxetine 20 MG CAP PO SCH (09:00)
[2016-06-21] MEDS ORDERED: CHOLECALCIFEROL VIT D3 2,000 UNITS TAB/CAP PO SCH (09:00)
[2016-06-21] MEDS ORDERED: buPROPion SR 150 MG TAB PO SCH (09:00)
[2016-06-24] MEDS ORDERED: ALENDRONATE SODIUM 70 MG TAB PO SCH (07:00)
== END 2016-06-20 14:10 | disposition home or self-care (01) ==
LOC: INTOOBSV 22:43 → F3E 23:56
PROVIDERS: ADMIT Surgery; ATTEND Surgery
DX: K56.60 Unspecified intestinal obstruction (principal)
CPT/HCPCS: 74020; 74177; G0378; 96374; J1170; J1885; J2405; Q9967

== ENCOUNTER 2017-06-18 20:19 | Emergency (ER) | payer OTHER ==
[2017-06-18 20:26] VITALS: TEMP 98.8
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
[2017-06-18 20:49] VITALS: BP 161/108; PULSE 96; RESP 14; O2SAT 96
== END 2017-06-18 22:12 | disposition home or self-care (01) ==
LOC: EDUNIT#
DX: S05.11XA Contusion of eyeball and orbital tissues, right eye, initial encounter (principal); S50.11XA Contusion of right forearm, initial encounter; S60.221A Contusion of right hand, initial encounter; V89.2XXA Person injured in unspecified motor-vehicle accident, traffic, initial encounter; Y92.410 Unspecified street and highway as the place of occurrence of the external cause; Y99.8 Other external cause status